=== PATIENT | female | born 1945 | race Caucasian/White ===

== ENCOUNTER 2021-03-13 19:23 | Observation (INO) | payer MEDICARE, SELFPAY ==
[2021-03-13 19:25] VITALS: BP 128/72; PULSE 80; RESP 16; TEMP 36.2; O2SAT 98; BMI 21.2
[2021-03-13 19:38] VITALS: BP 128/72; PULSE 80; RESP 16; TEMP 36.2; O2SAT 98
[2021-03-13 19:50] LABS: Absolute Lymphocyte Count 0.93 X10^3/uL (0.83-4.51); Absolute Neutrophil Count 2.7 X10^3/uL (2.0-7.7); Basophil# 0.01 X10^3/uL; Basophil% 0.3 % (0-1); Eosinophil# 0.01 X10^3/uL; Eosinophils% 0.3 % (0-5); Hematocrit 38.4 % (37-47); Hemoglobin 13.4 g/dL (12.0-15.0); Lymphocyte # 0.93 X10^3/ul (0.83-4.51); Lymphocyte % 23.3 % (19-41); Mean Corp Hgb Conc 34.9 g/dL (32-36); Mean Corpuscular Hgb 31.2 pg (27.0-32.0); Mean Corpuscular Volume 89.5 fL (81-99); Mean Platelet Vol. 9.5 fl (6.2-12.0); Monocyte% 7.5 % (0-10); NRBC Flagged by Analyzer 0 % (0-5); Neutrophil % 67.6 % (47-70); Platelet Count 191 K/mm3 (150-450); RBC Distribution Width SD 39.6 fl (35.1-43.9); Red Blood Count 4.29 M/mm3 (4.2-5.4)
[2021-03-13 20:05] LABS: Anion Gap 10 (5-15); BUN 7 mg/dL (7-18); BUN/Creat Ratio 15.6 RATIO (10-20); Calcium,Total 9.1 mg/dL (8.5-10.1); Chloride 88 mmol/L (98-107); Creatinine, Serum 0.45 mg/dL (0.55-1.02); EST Glomerular Filtration Rate 146 mL/min (>60); Est Glom Filt Rate - Afr Amer 176 mL/min (>60); Estimated Creatinine Clearance 39.63 ml/min; Glucose 121 mg/dL (74-106); Potassium 3.7 mmol/L (3.5-5.1); Sodium Level 122 mmol/L (136-145)
[2021-03-13 21:45] VITALS: BP 117/70; PULSE 74; RESP 17; O2SAT 99
--- NOTE | 2021-03-13 21:59 | EDS_ITS ---
HPI History of Present Illness Chief Complaint: Diarrhea Informant: patient and spouse/S.O. Narrative Narrative: Patient presents here with spouse evaluation symptoms starting a week ago. Reports nontraumatic low back pain nausea weakness with clear productive cough. Subjective fevers. Reports watery loose stool starting today. No recent antibiotics. Decreased urine output. Patient nonvaccinated for Covid. Patient trying to keep up with fluids however gets significantly nauseated. There has been no vomiting. Patient with no past medical history, only surgical history is cataracts. Reports epigastric tenderness. Prior similar symptoms: No PFSH PFSH Medical History no medical history Home Medications NK 03/13/21 [History Last Taken Unknown] Allergy/AdvReac Type Severity Reaction Status Date / Time No Known Allergies Allergy Verified 03/13/21 19:24 Social History Smoking Status: Never smoker ROS ROS ED Constitutional Constitutional ED: Reports fever(s); Denies chills or sweats Eyes Eyes: Denies change in vision ENT ENT ED: Denies dysphagia or sore throat Cardiovascular Cardiovascular: Denies chest pain, leg edema, palpitations or racing heartbeat Respiratory/Chest Respiratory/Chest: Reports cough; Denies dyspnea or dyspnea on exertion Gastrointestinal Gastrointestinal: Reports abdominal pain, diarrhea and nausea; Denies vomiting Genitourinary Genitourinary ED: Denies dysuria, hematuria or urinary frequency Musculoskeletal Musculoskeletal: Denies back pain, extremity pain or neck pain Integumentary Denies rash or wounds Neurologic Neurologic: Denies headache(s), paresthesias or weakness EXAM Physical Exam Const Vital Signs: 03/13/21 19:25 03/13/21 19:38 03/13/21 21:45 Temperature 97.2 F L 97.2 F L Temperature Source Temporal Temporal Pulse Rate 80 80 74 Respiratory Rate 16 16 17 Blood Pressure 128/72 H 128/72 H 117/70 Blood Pressure Mean 90 90 85 Pulse Ox 98 98 99 Oxygen Delivery Method Room Air Room Air Room Air Positive well nourished and well developed General Appearance ED: well developed and NAD HEENT Reports dry mucous membranes normocephalic and atraumatic Mouth ED: Yes dry mucous membranes Mouth: dry mucous membranes Eyes PERRL, EOMs intact bilaterally and conjunctivae normal General Eye ED: Yes normal appearance of both eyes Neck no lymphadenopathy and supple General: Negative for tenderness Chest Wall Chest: Negative for tenderness Resp normal respiratory effort and normal air movement Effort and Inspection: symmetric chest movement; Negative for respiratory distress Cardio regular rate, regular rhythm and no murmurs Peripheral Pulses: pulses 2+ throughout GI normal to inspection, nondistended, normoactive bowel sounds and non-tender GI Narrative: Negative Rey's or McBurney's tenderness. Palpation: Negative for guarding or rebound tenderness present Back/Spine no CVA tenderness and no thoracic nor lumbar tenderness Extremity normal to inspection General Extremety ED: Negative for edema or tenderness General Extremity: Negative for edema Neuro oriented x3 and no sensory deficits noted Sensorium / Orientation: awake and alert Skin no rashes or lesions noted and no wounds MDM MDM MDM Narrative Medical decision making narrative: Patient clinical dehydration with dry mucosal membranes. Patient's work-up was initiated in triage with basic labs. White count of 4 hemoglobin 13.4. Creatinine 0.45. However sodium at 122. With epigastric tenderness I did add lipase and liver enzymes. Lipase is normal. Slight transaminitis with AST at 43, ALT of 59, ALP at 247. She had no right upper quadrant tenderness. Urine noted nitrites and RBCs, per nontraumatic back pain she is in no distress. Urine culture was sent. She denies any burning with urine or any frequency. Reported more decreased urine output. Chest x-ray reported ill-defined right lower lobe density concerning for pneumonia versus ill-defined mass. She has no tobacco history. With her transaminitis with concerning chest x-ray findings, CT scan chest abdomen pelvis with IV contrast obtained. There is no masses. There is multilobe infiltrates noted. Reported per radiology concerns for Covid, she is a week and the symptoms with a negative rapid Covid. Lower suspicion for this. Blood culture added. She started on Rocephin and Zithromax for community-acquired pneumonia coverage. I spoke with hospitalist Dr. Becerra for admission. Patient nausea improved with Zofran. she is stable for the medical floor. Lab Data Attestation: I reviewed the patient's lab results. Labs: Laboratory Results - last 24 hr 03/13/21 03/13/21 03/13/21 19:35 19:35 19:35 WBC 4.0 L RBC 4.29 Hgb 13.4 Hct 38.4 MCV 89.5 MCH 31.2 MCHC 34.9 RDW Std Deviation 39.6 RDW Coeff of Oliver 12.0 Plt Count 191 MPV 9.5 Immature Gran % (Auto) 1.000 H Neut % (Auto) 67.6 Lymph % (Auto) 23.3 [place] % (Auto) 7.5 Eos % (Auto) 0.3 Baso % (Auto) 0.3 Absolute Neuts (auto) 2.7 Absolute Lymphs (auto) 0.93 Nucleated RBC % 0 Sodium 122 L Potassium 3.7 Chloride 88 L Carbon Dioxide 24.0 Anion Gap 10 BUN 7 Creatinine 0.45 L Estim Creat Clear Calc 39.63 Est GFR (MDRD) Af Amer 176 Est GFR (MDRD) Non-Af 146 BUN/Creatinine Ratio 15.6 Glucose 121 H Calcium 9.1 Total Bilirubin 0.40 Direct Bilirubin 0.18 AST 43 H ALT 59 H Alkaline Phosphatase 247 H Troponin I High Sens 7 Total Protein 7.2 Albumin 3.2 Globulin 4.0 Lipase 84 Urine Color Urine Clarity Urine pH Ur Specific [place] Urine Protein Urine Glucose (UA) Urine Ketones Urine Occult Blood Urine Nitrite Urine Bilirubin Urine Urobilinogen Ur Leukocyte Esterase Urine RBC Urine WBC Ur Squamous Epith Cells Urine Bacteria Urine Mucus 03/13/21 22:20 WBC RBC Hgb Hct MCV MCH MCHC RDW Std Deviation RDW Coeff of Oliver Plt Count MPV Immature Gran % (Auto) Neut % (Auto) Lymph % (Auto) [place] % (Auto) Eos % (Auto) Baso % (Auto) Absolute Neuts (auto) Absolute Lymphs (auto) Nucleated RBC % Sodium Potassium Chloride Carbon Dioxide Anion Gap BUN Creatinine Estim Creat Clear Calc Est GFR (MDRD) Af Amer Est GFR (MDRD) Non-Af BUN/Creatinine Ratio Glucose Calcium Total Bilirubin Direct Bilirubin AST ALT Alkaline Phosphatase Troponin I High Sens Total Protein Albumin Globulin Lipase Urine Color Yellow Urine Clarity Sl. Cloudy Urine pH 7.0 Ur Specific [place] 1.015 Urine Protein 15 H Urine Glucose (UA) Normal Urine Ketones Negative Urine Occult Blood 25 H Urine Nitrite Positive H Urine Bilirubin Negative Urine Urobilinogen Normal Ur Leukocyte Esterase Negative Urine RBC 0-5 SEEN Urine WBC 0 SEEN Ur Squamous Epith Cells 0 SEEN Urine Bacteria 2+ Urine Mucus 0 SEEN Radiography Chest X-Ray - ED: 1 View, Read by ED Physician and Read by Radiologist Diagnostic Testing: Clinical Impression(s) from Imaging Studies Chest X-Ray 03/13/21 22:40 IMPRESSION: Ill-defined opacity in the right lung as above. Consider pneumonia versus malignancy. Chest CT may be helpful to further evaluate Electronically Signed: Angel BrandonDO yasir at 23:11 EST Tel , Service support , Chest/Abdomen/Pelvis CT 03/13/21 23:18 IMPRESSION: 1. Negative for pulmonary embolism or thoracic aortic dissection. Patchy groundglass airspace disease throughout the lungs compatible with COVID. 2. Unremarkable abdomen and pelvis for patient''s age Electronically Signed: Angel DO Chapito at 0:30 EST Tel , Service support , EKG Initial EKG: Attestation: I personally reviewed and interpreted this EKG as follows: Comments: Sinus rate of 77, no ST or T wave changes. Discharge Plan Dx/Rx/DC Orders Clinical Impression: Community acquired pneumonia, Acute hyponatremia, Nausea, Acute dehydration, Transaminitis Disposition Disposition: Acute Care [facility]
--- NOTE | 2021-03-13 22:01 | EKG12_ITS ---
Test Reason : NAUSEA Blood Pressure : / mmHG Vent. Rate : 077 BPM Atrial Rate : 077 BPM P-R Int : 156 ms QRS Dur : 086 ms QT Int : 384 ms P-R-T Axes : 063 012 027 degrees QTc Int : 434 ms Normal sinus rhythm Low voltage QRS Septal TX, age undetermined, cannot be excluded Confirmed by RONNY MORALES, JR ([id number]), manuscript editor SANDRA DEJESUS ([id number]) on 03/15/2021 9:20:06 AM Referred By: JONO Confirmed By:JR JEFFERSON MD
[2021-03-13] MEDS: Ondansetron 4 MG/2 ML Vial IV (22:14)
[2021-03-13] MEDS: 0.9% Normal Saline 1,000 ML 1000 ML IV (22:14)
[2021-03-13 22:29] LABS: Mucous, Urine 0 SEEN /hpf (<or=2+); Squamous Epithelial Cells - UA 0 SEEN /hpf (5-10); White Blood Cells 0 SEEN /hpf (0-5)
[2021-03-13 22:31] LABS: AST(SGOT) 43 U/L (15-37); Alanine Aminotransfer ALT/SGPT 59 U/L (13-56); Albumin, Serum 3.2 g/dL (3.2-5.0); Alkaline Phosphatase 247 U/L (45-117); Bilirubin, Direct 0.18 mg/dL (0.00-0.30); Lipase 84 U/L (73-393); Protein, Total 7.2 g/dL (6.4-8.2); Troponin-I HS 7 pg/mL (3.0-54.0)
--- NOTE | 2021-03-13 22:40 | RAD_ITS ---
STUDY: X-RAY CHEST REASON FOR EXAM: Female, 75 years old. cough TECHNIQUE: Single AP portable view of the chest. COMPARISON: None. FINDINGS: Ill-defined opacity in the right mid to lower lung measuring 4.3 x 3.7 cm Lungs are otherwise clear. There is no demonstrated pleural abnormality. Normal size heart. Normal mediastinum and [place]. Normal visualized pulmonary arteries. Normal visualized aortic arch and descending thoracic aorta. Normal visualized thoracic spine. Normal visualized ribs, clavicles, and shoulders. There is no demonstrated abnormality of the visualized soft tissue structures of the upper abdomen. RAD/Chest 1 View (Portable) IMPRESSION: Ill-defined opacity in the right lung as above. Consider pneumonia versus malignancy. Chest CT may be helpful to further evaluate Electronically Signed: Angel Uriarte DO at 23:11 EST Tel , Service support ,
[2021-03-13 22:49] LABS: Color, Urine Yellow (Yellow); Glucose, Dipstick Normal (Normal); Ketone-Dipstick Negative (Negative); Leukocyte Esterase-Dipstick Negative /ul (Negative); Nitrite-Dipstick Positive (Negative); Occult Blood-Urine 25 /ul (Negative); Protein-Dipstick 15 mg/dl (Negative); Specific Gravity, Urine 1.015 (1.002-1.030); Urine Bilirubin Dipstick Negative (Negative); Urine Clarity Sl. Cloudy (Clear); Urine Urobilinogen Normal (Normal)
[2021-03-13 23:00] LABS: Bacteria 2+ /hpf (None Seen); Red Blood Cells-Urine 0-5 SEEN /hpf (0-5)
--- NOTE | 2021-03-13 23:18 | CT_ITS ---
STUDY: CT CHEST, ABDOMEN T PELVIS WITH CONTRAST REASON FOR EXAM: Female, 75 years old. right lung mass -- tranasminitis, hyponatremia, r/o masses RADIATION DOSAGE (If Supplied By Facility): CTDIvol = ( 10.19 ) mGy, DLP = ( 783.22 ) mGycm TECHNIQUE: Transaxial imaging was performed following intravenous administration of IV 100mL Isovue-370. Individualized dose optimization techniques were used for this CT. COMPARISON: Chest x-ray earlier. FINDINGS: CHEST nonenhancing right thyroid nodule measuring 7 mm. Lungs are adequately inflated with diffuse patchy groundglass airspace disease, most prominent in the right lung giving findings seen on chest x-ray. Findings are compatible with COVID pneumonia. There is no demonstrated pleural abnormality. Normal heart and pericardium. Normal mediastinum. Normal hilar regions. Normal unenhanced pulmonary arteries. Normal aorta arch and descending thoracic aorta. Normal osseous structures. There is no demonstrated abnormality of the visualized upper abdomen. ABDOMEN The visualized lung bases are unremarkable. The visualized portions of the heart are within normal limits. Normal liver. Normal gallbladder and extrahepatic biliary system. Normal spleen. Normal pancreas. Normal bilateral adrenal glands. Normal right kidney. Normal left kidney. Normal visualized stomach. Normal small intestine. There are multiple colonic diverticula consistent with diverticulosis. The appendix is visualized and appears normal. Normal abdominal aorta. Normal inferior vena cava. Normal retroperitoneum. Normal abdominal wall. Normal osseous structures. PELVIS Normal urinary bladder. Moderate uterine atrophy. Normal visualized small intestine. Normal visualized colon. There is no pelvic fluid. There is no pelvic lymphadenopathy or mass lesion. Normal visualized pelvic arteries. Normal abdominal wall. There are diffuse degenerative changes of the visualized lumbar spine. CT/CT Chest, Abd, Pel w/Contrast IMPRESSION: 1. Negative for pulmonary embolism or thoracic aortic dissection. Patchy groundglass airspace disease throughout the lungs compatible with COVID. 2. Unremarkable abdomen and pelvis for patient''s age Electronically Signed: Angel Uriarte DO at 0:30 EST Tel , Service support ,
[2021-03-14] VITALS (15 sets, daily range): BP systolic 86–126; BP diastolic 59–83; PULSE 68–102; RESP 16–20; TEMP 36.6–37.7; O2SAT 94–99; BMI 21.9
--- NOTE | 2021-03-14 00:50 | HP.PCM_ITS ---
HPI - General HPI Narrative SHREE MORRIS, is a 75 F who presents to the emergency room with chief complaint of general illness. The patient complained of increased cough shortness of breath and fever beginning 2 weeks ago. The patient is not vaccinated for COVID-19 virus but has been tested periodically throughout this past 2 weeks and was negative today in the emergency room. The patient has had increased fatigue and decreased appetite for the past several days and came to the emergency room for further evaluation. Chest x-ray reveals a right lower lobe consolidation and a subsequent CT scan was done to rule out a mass which was negative. The patient sodium level was 122. She continued to have rigors during my evaluation. I was the consensus of myself and the emergency room physician that we were treating a bacterial pneumonia and Rocephin and azithromycin were initiated. She will be admitted for further management of her community-acquired pneumonia. COUNTS INCLUDE 234 BEDS AT THE [facility] Medical History no medical history Home Medications NK 03/13/21 [History Last Taken Unknown] Allergy/AdvReac Type Severity Reaction Status Date / Time No Known Allergies Allergy Verified 03/13/21 19:24 Social History Smoking Status: Never smoker ROS Constitutional Constitutional: Reports chills, fatigue, fever(s), malaise and weakness Eyes Eyes: Denies blurry vision ENT HEENT: Denies abnormal hearing Cardiovascular Cardiovascular: Denies chest pain Respiratory/Chest Respiratory/Chest: Reports cough and shortness of breath with exertion Gastrointestinal Gastrointestinal: Denies abdominal pain Genitourinary Genitourinary: Denies dysuria Musculoskeletal Musculoskeletal: Denies back pain Integumentary Integumentary: Denies dry skin Neurologic Neurologic: Denies abnormal gait Psychiatric Psychiatric: Denies anxiety Vital Signs Vital Signs Vital Signs: 03/13/21 19:25 03/13/21 19:38 03/13/21 21:45 Temperature 97.2 F L 97.2 F L Temperature Source Temporal Temporal Pulse Rate 80 80 74 Respiratory Rate 16 16 17 Blood Pressure 128/72 H 128/72 H 117/70 Blood Pressure Mean 90 90 85 Pulse Ox 98 98 99 Oxygen Delivery Method Room Air Room Air Room Air Weight Weight: 116 lb Body Mass Index (BMI) 21.2 Physical Exam Const oriented x3 General Appearance: cooperative HEENT head/scalp atraumatic Eyes PERRL Neck no lymphadenopathy and supple Resp normal respiratory effort and clear to auscultation bilaterally Cardio regular rate, regular rhythm, S1 normal heart sound and S2 normal heart sound GI normal to inspection, nondistended, normoactive bowel sounds Extremity normal capillary refill Neuro CN's II-XII intact bilaterally Results Lab / Micro Data Result Diagrams: 03/13/21 19:35 03/13/21 19:35 Labs: Laboratory Results - last 24 hr 03/13/21 19:35: WBC 4.0 L, RBC 4.29, Hgb 13.4, Hct 38.4, MCV 89.5, MCH 31.2, MCHC 34.9, RDW Std Deviation 39.6, RDW Coeff of Oliver 12.0, Plt Count 191, MPV 9.5, Immature Gran % (Auto) 1.000 H, Neut % (Auto) 67.6, Lymph % (Auto) 23.3, [place] % (Auto) 7.5, Eos % (Auto) 0.3, Baso % (Auto) 0.3, Absolute Neuts (auto) 2.7, Absolute Lymphs (auto) 0.93, Nucleated RBC % 0 03/13/21 19:35: Sodium 122 L, Potassium 3.7, Chloride 88 L, Carbon Dioxide 24.0, Anion Gap 10, BUN 7, Creatinine 0.45 L, Estim Creat Clear Calc 39.63, Est GFR (MDRD) Af Amer 176, Est GFR (MDRD) Non-Af 146, BUN/Creatinine Ratio 15.6, Glucose 121 H, Calcium 9.1 03/13/21 19:35: Total Bilirubin 0.40, Direct Bilirubin 0.18, AST 43 H, ALT 59 H, Alkaline Phosphatase 247 H, Troponin I High Sens 7, Total Protein 7.2, Albumin 3.2, Globulin 4.0, Lipase 84 03/13/21 22:20: Urine Color Yellow, Urine Clarity Sl. Cloudy, Urine pH 7.0, Ur Specific [place] 1.015, Urine Protein 15 H, Urine Glucose (UA) Normal, Urine Ketones Negative, Urine Occult Blood 25 H, Urine Nitrite Positive H, Urine Bilirubin Negative, Urine Urobilinogen Normal, Ur Leukocyte Esterase Negative, Urine RBC 0-5 SEEN, Urine WBC 0 SEEN, Ur Squamous Epith Cells 0 SEEN, Urine Bacteria 2+, Urine Mucus 0 SEEN Micro: Microbiology 03/13/21 19:31 Nasal Secretion SARS-CoV-2 Antigen (Rapid) - Final Radiology Impression Chest X-Ray 03/13/21 22:40 IMPRESSION: Ill-defined opacity in the right lung as above. Consider pneumonia versus malignancy. Chest CT may be helpful to further evaluate Electronically Signed: Angel UriarteDO at 23:11 EST Tel , Service support , Chest/Abdomen/Pelvis CT 03/13/21 23:18 IMPRESSION: 1. Negative for pulmonary embolism or thoracic aortic dissection. Patchy groundglass airspace disease throughout the lungs compatible with COVID. 2. Unremarkable abdomen and pelvis for patient''s age Electronically Signed: Angel DO Chapito at 0:30 EST Tel , Service support , Assessment & Plan Assessment/Plan (1) Community acquired pneumonia: (2) Acute hyponatremia: (3) Transaminitis: PLAN: 1. Community-acquired pneumonia?admit patient to medical surgical floor, continue Rocephin and azithromycin initiated in the emergency room, DuoNe b INH every 4 hours as needed shortness of breath, Solu-Medrol 40 mg IV every 8 hours 2. Hyponatremia?IV normal saline at a rate of 100 cc/h, repeat CMP in the morning 3. Transaminitis?repeat CMP in the morning 4. DVT prophylaxis?low molecular weight heparin Charges/Coding Visit Charges Inpatient E&M: 61723 Init Hosp L3
[2021-03-14] MEDS: Ceftriaxone 1 GM/50 ML BAG IV ×2 (01:02→23:31)
[2021-03-14] MEDS: 0.9% Normal Saline 1,000 ML 100 ML IV (03:47)
--- NOTE | 2021-03-14 05:00 | NURSING ---
Aiken a loud noise. found pt sitting on the floor. Pt reports falling out of bed. pt denies hitting her head. pt denies pain. heavy equipment supervisor & dr Becerra notified.
[2021-03-14 05:16] LABS: Bedside Glucose 107 mg/dL (70-110)
[2021-03-14] MEDS: 0.9% Saline Lock 10 ML Syringe IV ×3 (06:20→22:58)
[2021-03-14] MEDS: Ondansetron 4 MG/2 ML Vial IV (06:22)
--- NOTE | 2021-03-14 06:28 | NURSING ---
attempted to call to update on nights events. no answer.
[2021-03-14] MEDS: Ipratropium/Albuterol Sulfate 3 ML AMPUL.NEB INHALATION ×4 (06:49→19:56)
--- NOTE | 2021-03-14 06:49 | NURSING ---
attempted to call . voicemail
[2021-03-14 08:14] LABS: Absolute Lymphocyte Count 0.83 X10^3/uL (0.83-4.51); Absolute Neutrophil Count 2.7 X10^3/uL (2.0-7.7); Basophil# 0.01 X10^3/uL; Basophil% 0.3 % (0-1); Hematocrit 38.4 % (37-47); Hemoglobin 13.3 g/dL (12.0-15.0); Lymphocyte # 0.83 X10^3/ul (0.83-4.51); Lymphocyte % 21.5 % (19-41); Mean Corp Hgb Conc 34.6 g/dL (32-36); Mean Corpuscular Hgb 31.8 pg (27.0-32.0); Mean Corpuscular Volume 91.9 fL (81-99); Mean Platelet Vol. 9.5 fl (6.2-12.0); Monocyte# 0.23 X10^3/uL; NRBC Flagged by Analyzer 0 % (0-5); Neutrophil # 2.74 X10^3/uL (2.7-7.7); Neutrophil % 70.9 % (47-70); Platelet Count 187 K/mm3 (150-450); RBC Distribution Width CV 12.1 % (11.6-14.6); RBC Distribution Width SD 41.1 fl (35.1-43.9); Red Blood Count 4.18 M/mm3 (4.2-5.4); White Blood Count 3.9 K/mm3 (4.4-11.0)
[2021-03-14 08:47] LABS: ALB/GLOB Ratio 0.8 RATIO (0.9-2.4); AST(SGOT) 47 U/L (15-37); Alanine Aminotransfer ALT/SGPT 53 U/L (13-56); Alkaline Phosphatase 216 U/L (45-117); Anion Gap 5 (5-15); BUN 5 mg/dL (7-18); BUN/Creat Ratio 8.6 RATIO (10-20); Calcium,Total 8.6 mg/dL (8.5-10.1); Chloride 99 mmol/L (98-107); Creatinine, Serum 0.58 mg/dL (0.55-1.02); EST Glomerular Filtration Rate 108 mL/min (>60); Est Glom Filt Rate - Afr Amer 131 mL/min (>60); Estimated Creatinine Clearance 37.81 ml/min; Globulin 3.6 g/dL (2.2-4.2); Glucose 113 mg/dL (74-106); Potassium 3.6 mmol/L (3.5-5.1); Protein, Total 6.6 g/dL (6.4-8.2); Sodium Level 132 mmol/L (136-145)
--- NOTE | 2021-03-14 10:25 | CASEMGMT ---
RN CM called patient in room for initial transition planning/care coordination assessment. RN CM introduced self and role at [facility]. Patient is alert and oriented. Patient willing to participate in assessment and is able to answer all questions appropriately. Care providers, pharmacy, and demographics verified. Patient wishes to discharge home, denies need for home health at this time. Patient states she has no further needs or concerns at this time. CM to follow for discharge planning needs that may arise. PCP: Kia Specialists: none Preferred Pharmacy: [facility] Insurance: [facility] Prescription Benefit: yes Living Will/HPOA: yes, Jhoan Lawrence LNOK: Living Arrangements: Patient lives with in a 2 story home. Patient states she is independent and able to ambulate stairs. Transportation: self/ DME/HHC: Patient states she has shower chair, raised toilet, grab bars at home. Patient denies previous HHC or SNF. Patient states no preferences for DME. Disposition Plan: Patient to discharge home with family support and follow-up plans in place. Will monitor for home oxygen. Tori LEE, RN, CM
--- NOTE | 2021-03-14 11:18 | PCM.PN.HOSP ---
Subjective Subjective Follow-up on Acute COVID-19 pneumonia: Patient was seen and examined. She is not on oxygen. She feels improved. COVID-19 PCR is positive. Objective Data Objective Data Vital Signs: Vital Signs Temp Pulse Resp BP Pulse Ox 99.7 F H 82 16 107/62 94 03/14/21 08:16 03/14/21 08:16 03/14/21 10:51 03/14/21 08:16 03/14/21 08:16 Oxygen Delivery Method Room Air Weight: 52.8 kg Body Mass Index (BMI) 21.9 Intake & Output: Intake and Output for Last 24 Hours 03/12/21 03/13/21 03/14/21 23:59 23:59 23:59 Intake Total 1000 / 1000 505 / 505 Output Total 600 / 600 Balance 1000 / 1000 -95 / -95 Lab / Micro Data Result Diagrams: 03/14/21 07:45 03/14/21 07:45 Labs: Laboratory Results - last 24 hr 03/13/21 19:35: WBC 4.0 L, RBC 4.29, Hgb 13.4, Hct 38.4, MCV 89.5, MCH 31.2, MCHC 34.9, RDW Std Deviation 39.6, RDW Coeff of [place] 12.0, Plt Count 191, MPV 9.5, Immature Gran % (Auto) 1.000 H, Neut % (Auto) 67.6, Lymph % (Auto) 23.3, [place] % (Auto) 7.5, Eos % (Auto) 0.3, Baso % (Auto) 0.3, Absolute Neuts (auto) 2.7, Absolute Lymphs (auto) 0.93, Nucleated RBC % 0 03/13/21 19:35: Sodium 122 L, Potassium 3.7, Chloride 88 L, Carbon Dioxide 24.0, Anion Gap 10, BUN 7, Creatinine 0.45 L, Estim Creat Clear Calc 39.63, Est GFR (MDRD) Af Amer 176, Est GFR (MDRD) Non-Af 146, BUN/Creatinine Ratio 15.6, Glucose 121 H, Calcium 9.1 03/13/21 19:35: Total Bilirubin 0.40, Direct Bilirubin 0.18, AST 43 H, ALT 59 H, Alkaline Phosphatase 247 H, Troponin I High Sens 7, Total Protein 7.2, Albumin 3.2, Globulin 4.0, Lipase 84 03/13/21 22:20: Urine Color Yellow, Urine Clarity Sl. Cloudy, Urine pH 7.0, Ur Specific [place] 1.015, Urine Protein 15 H, Urine Glucose (UA) Normal, Urine Ketones Negative, Urine Occult Blood 25 H, Urine Nitrite Positive H, Urine Bilirubin Negative, Urine Urobilinogen Normal, Ur Leukocyte Esterase Negative, Urine RBC 0-5 SEEN, Urine WBC 0 SEEN, Ur Squamous Epith Cells 0 SEEN, Urine Bacteria 2+, Urine Mucus 0 SEEN 03/14/21 05:11: POC Glucose 107 03/14/21 07:45: WBC 3.9 L, RBC 4.18 L, Hgb 13.3, Hct 38.4, MCV 91.9, MCH 31.8, MCHC 34.6, RDW Std Deviation 41.1, RDW Coeff of [place] 12.1, Plt Count 187, MPV 9.5, Immature Gran % (Auto) 1.300 H, Neut % (Auto) 70.9 H, Lymph % (Auto) 21.5, [place] % (Auto) 6.0, Eos % (Auto) 0.0, Baso % (Auto) 0.3, Absolute Neuts (auto) 2.7, Absolute Lymphs (auto) 0.83, Nucleated RBC % 0 03/14/21 07:45: Sodium 132 L, Potassium 3.6, Chloride 99, Carbon Dioxide 28.0, Anion Gap 5, BUN 5 L, Creatinine 0.58, Estim Creat Clear Calc 37.81, Est GFR (MDRD) Af Amer 131, Est GFR (MDRD) Non-Af 108, BUN/Creatinine Ratio 8.6 L, Glucose 113 H, Calcium 8.6, Total Bilirubin 0.40, AST 47 H, ALT 53, Alkaline Phosphatase 216 H, Total Protein 6.6, Albumin 3.0 L, Globulin 3.6, Albumin/Globulin Ratio 0.8 L 03/14/21 07:55: COVID-19 (FADIA) Detected Micro: Microbiology 03/14/21 07:55 Mucosa - Nasopharyngeal Respiratory Panel (PCR) - Final 03/13/21 19:31 Nasal Secretion SARS-CoV-2 Antigen (Rapid) - Final Radiography Diagnostic Testing: Radiology Impression Chest X-Ray 03/13/21 22:40 IMPRESSION: Ill-defined opacity in the right lung as above. Consider pneumonia versus malignancy. Chest CT may be helpful to further evaluate Electronically Signed: Angel Uriarte DO at 23:11 EST Tel , Service support , Chest/Abdomen/Pelvis CT 03/13/21 23:18 IMPRESSION: 1. Negative for pulmonary embolism or thoracic aortic dissection. Patchy groundglass airspace disease throughout the lungs compatible with COVID. 2. Unremarkable abdomen and pelvis for patient''s age Electronically Signed: Angel Uriarte DO at 0:30 EST Tel , Service support , Physical Exam Narrative Physical exam: General: Alert, Oriented x3, Cooperative, No apparent distress, Well developed HEENT: Atraumatic Oral: Moist Mucosa Neck: Supple Lungs: Diminished to auscultation Cardiovascular: HS I+II, regular, no murmurs Abdomen: Bowel Sounds Present, Soft, Non Tender Extremities: No edema Assessment & Plan Assessment/Plan (1) Pneumonia due to COVID-19 virus: (2) Hyponatremia: PLAN: 1. Acute COVID-19 pneumonia without hypoxia Patient is unvaccinated Symptoms started 7 days ago Remains not on oxygen Will hold off on ordering Decadron and remdesivir Continue to encourage use of incentive spirometer 2. Hyponatremia, probably related to the dehydration/hypovolemia Sodium is now 132, administered on 122; likely overcorrected Will stop IV fluids, repeat blood work in a.m. Charges/Coding Visit Charges Inpatient E&M: 04122 Subs Hosp L2
[2021-03-15] VITALS (10 sets, daily range): BP systolic 106–114; BP diastolic 58–76; PULSE 55–87; RESP 12–20; TEMP 36.4–36.8; O2SAT 92–99
[2021-03-15] MEDS: 0.9% Saline Lock 10 ML Syringe IV (05:12)
[2021-03-15 07:36] LABS: Absolute Lymphocyte Count 0.83 X10^3/uL (0.83-4.51); Absolute Neutrophil Count 2.7 X10^3/uL (2.0-7.7); Basophil# 0.01 X10^3/uL; Basophil% 0.3 % (0-1); Hemoglobin 12.9 g/dL (12.0-15.0); Lymphocyte # 0.83 X10^3/ul (0.83-4.51); Lymphocyte % 21.6 % (19-41); Mean Corp Hgb Conc 33.9 g/dL (32-36); Mean Corpuscular Hgb 31.5 pg (27.0-32.0); Mean Corpuscular Volume 92.9 fL (81-99); Mean Platelet Vol. 9.6 fl (6.2-12.0); Monocyte# 0.28 X10^3/uL; Monocyte% 7.3 % (0-10); NRBC Flagged by Analyzer 0 % (0-5); Neutrophil # 2.68 X10^3/uL (2.7-7.7); Neutrophil % 69.8 % (47-70); Platelet Count 203 K/mm3 (150-450); RBC Distribution Width CV 12.3 % (11.6-14.6); Red Blood Count 4.09 M/mm3 (4.2-5.4); White Blood Count 3.8 K/mm3 (4.4-11.0)
[2021-03-15] MEDS: Ipratropium/Albuterol Sulfate 3 ML AMPUL.NEB INHALATION ×2 (07:37→11:08)
[2021-03-15 07:52] LABS: ALB/GLOB Ratio 0.8 RATIO (0.9-2.4); AST(SGOT) 62 U/L (15-37); Alanine Aminotransfer ALT/SGPT 71 U/L (13-56); Alkaline Phosphatase 246 U/L (45-117); Anion Gap 8 (5-15); BUN 7 mg/dL (7-18); BUN/Creat Ratio 12.4 RATIO (10-20); Calcium,Total 8.7 mg/dL (8.5-10.1); Chloride 101 mmol/L (98-107); Creatinine, Serum 0.56 mg/dL (0.55-1.02); EST Glomerular Filtration Rate 112 mL/min (>60); Est Glom Filt Rate - Afr Amer 135 mL/min (>60); Estimated Creatinine Clearance 37.81 ml/min; Glucose 143 mg/dL (74-106); Potassium 3.9 mmol/L (3.5-5.1); Sodium Level 135 mmol/L (136-145)
--- NOTE | 2021-03-15 09:30 | PCS.PANDOC ---
PANDEMIC DOCUMENTATION INITIATED: Date: 12/19/2020 Time: 190
--- NOTE | 2021-03-15 11:14 | PCM.DC ---
Discharge Instructions Diet Discharge Diet: No restrictions Activity Discharge Activity: Return to Normal Activity Follow Up Care Test Results: Test results from this visit will be discussed in further detail at your follow-up appointment, if applicable. Discharge Plan Admission Admit Date/Time: 03/14/21 00:56 Primary Reason for Your Visit: Acute COVID-19 pneumonia Attending Provider: Zeenat Lozano Primary Care Provider: León Adam Instructions Additional Instructions / Restrictions: Complete your Decadron. Continue to quarantine for a total of 20 days from the start of symptoms. You are strongly advised to get vaccinated within the next couple of weeks. Discharge Orders/Prescriptions Prescriptions: New dexamethasone 4 mg Tablet 6 mg PO DAILY 9 Days Qty: 14 RF: 0 albuterol sulfate 90 mcg/actuation HFA aerosol inhaler 1 inh inhalation Q4H PRN (Reason: shortness of breath or wheezing) 14 Days Qty: 8.5 RF: 0 Referrals / Follow Up: León Adam MD [Primary Care Provider] - Within 2 Weeks Disposition Disposition (needs filled in before D/C Order can be placed): Home, Self Care
--- NOTE | 2021-03-15 11:21 | DS.PCM_ITS ---
Providers Date of Admission: 03/14/21 Date of Discharge: 03/15/21 Primary Care Physician: Dr. León Adam MD Reason For Visit: COMMUNITY ACQUIRED PNEUMONIA Diagnosis Discharge Diagnosis (1) Pneumonia due to COVID-19 virus: Status: Acute Code(s): U07.1 - COVID-19; J12.82 - Pneumonia due to coronavirus disease 2019 (2) Hyponatremia: Status: Acute Code(s): E87.1 - Hypo-osmolality and hyponatremia Medications at Discharge Home Medications albuterol sulfate 1 inh INHALATION Q4H PRN 14 Days #8.5 g 03/15/21 dexamethasone 6 mg PO DAILY 9 Days #14 tab 03/15/21 Hospital Course Operations None Procedures None Summary of Care Provided Minutes Spent on Discharge: 45 Hospital Course: 75-year-old female who comes in with fever cough shortness of breath ongoing for 2 weeks. Patient is unvaccinated. She was seen in the emergency room her rapid COVID-19 test was negative. A chest x-ray shows right lower lobe consolidation. CTA of the chest was negative for acute PE. Her admitting sodium was 122. Patient was initially admitted as acute bacterial pneumonia and started on IV Rocephin and azithromycin. COVID-19 PCR turned out to be positive. She was put on Covid precautions. She did not require oxygen throughout her hospital stay. She however dropped oxygen saturation to 93% on exertion. She still did not require oxygen. She was disch arged on 10 days of Decadron which she started in the hospital. She will follow up with the primary care doctor 1 to 2 weeks after her quarantine is over. Physical Exam Narrative Physical exam: General: Alert, Oriented x3, Cooperative, No apparent distress, Well developed HEENT: Atraumatic Oral: Moist Mucosa Neck: Supple Lungs: Diminished to auscultation Cardiovascular: HS I+II, regular, no murmurs Abdomen: Bowel Sounds Present, Soft, Non Tender Extremities: No edema Weight / BMI Weight Weight: 52.8 kg Body Mass Index (BMI) 21.9 ABG / Lab / Microbiology Data Result Diagrams: 03/15/21 07:20 03/15/21 07:20 Laboratory: Laboratory Results - last 24 hr 03/15/21 07:20: WBC 3.8 L, RBC 4.09 L, Hgb 12.9, Hct 38.0, MCV 92.9, MCH 31.5, MCHC 33.9, RDW Std Deviation 42.0, RDW Coeff of Oliver 12.3, Plt Count 203, MPV 9.6, Immature Gran % (Auto) 1.000 H, Neut % (Auto) 69.8, Lymph % (Auto) 21.6, [place] % (Auto) 7.3, Eos % (Auto) 0.0, Baso % (Auto) 0.3, Absolute Neuts (auto) 2.7, Absolute Lymphs (auto) 0.83, Nucleated RBC % 0 03/15/21 07:20: Sodium 135 L, Potassium 3.9, Chloride 101, Carbon Dioxide 26.0, Anion Gap 8, BUN 7, Creatinine 0.56, Estim Creat Clear Calc 37.81, Est GFR (MDRD) Af Amer 135, Est GFR (MDRD) Non-Af 112, BUN/Creatinine Ratio 12.4, Glucose 143 H, Calcium 8.7, Total Bilirubin 0.40, AST 62 H, ALT 71 H, Alkaline Phosphatase 246 H, Total Protein 7.0, Albumin 3.0 L, Globulin 4.0, Albumin/Globulin Ratio 0.8 L Microbiology: Microbiology 03/14/21 00:25 Urine, Clean Catch Urine Culture - Preliminary Culture exhibits no growth. 03/14/21 07:55 Mucosa - Nasopharyngeal Respiratory Panel (PCR) - Final 03/13/21 19:31 Nasal Secretion SARS-CoV-2 Antigen (Rapid) - Final D/C Instructions Discharge Diet: No restrictions Meaningful Use Info Meaningful Use Diagnoses (Choose all that apply): None applicable Discharge Plan Admission Admit Date/Time: 03/14/21 00:56 Primary Reason for Your Visit: Acute COVID-19 pneumonia Attending Provider: Zeenat Lozano Primary Care Provider: León Adam Instructions Additional Instructions / Restrictions: Complete your Decadron. Continue to quarantine for a total of 20 days from the start of symptoms. You are strongly advised to get vaccinated within the next couple of weeks. Discharge Orders/Prescriptions Prescriptions: New dexamethasone 4 mg Tablet 6 mg PO DAILY 9 Days Qty: 14 RF: 0 albuterol sulfate 90 mcg/actuation HFA aerosol inhaler 1 inh inhalation Q4H PRN (Reason: shortness of breath or wheezing) 14 Days Qty: 8.5 RF: 0 Referrals / Follow Up: León Adam MD [Primary Care Provider] - Within 2 Weeks Disposition Disposition (needs filled in before D/C Order can be placed): Home, Self Care Charges/Coding Visit Charges Inpatient E&M: 89078 Disch Hosp
--- NOTE | 2021-03-15 11:48 | CASEMGMT ---
Pt did not qualify for home O2.
--- NOTE | 2021-03-15 12:24 | PHA.DC.MC ---
Pharmacy Service has performed discharge medication reconciliation and counseling for this patient. Patient counseled via telephone due to COVID precautions. 1. ALBUTEROL MDI 1PUFF Q4H PRN SOB/WHEEZING 2. DEXAMETHASONE 6MG PO DAILY X 9 DAYS The patient's discharge medication list was reviewed for discrepancies and discrepancies were resolved. Home Medications albuterol sulfate 1 inh INHALATION Q4H PRN 14 Days #8.5 g 03/15/21 dexamethasone 6 mg PO DAILY 9 Days #14 tab 03/15/21 The patient was counseled on the following discharge medications and changes in medications for homegoing were reviewed. The Reason for Use, instructions for use, and potential side effects were reviewed for all new medications. The patient's questions regarding all of their medications were answered. The patient was able to verbally demonstrate an understanding of their discharge medications.
[2021-03-15] MEDS: dexAMETHasone 4 MG Tablet 6 MG PO (12:47)
--- NOTE | 2021-03-16 15:21 | CASEMGMT ---
WARREN CM Discharge Follow-Up Phone Call. Lace: 4 Strata: 1 Discharge Date: 03/15/21 Adm Dx:CAP, COVID Attempted discharge f/u phone call. No answer. Non-identifying VM received. Non-descript VM left requesting return call if there are any questions or concerns. Phone number provided. Polo LEE RN CM
== END 2021-03-15 15:06 | disposition home or self-care (01) | DRG 177 ==
LOC: ED 03-14 01:05 → MS2 03-14 07:07 → MS3 03-15 10:41 → MS2 09-12 17:08 → MS3 09-12 17:08
PROVIDERS: Admitting Provider Family Medicine; Emergency Provider Emergency Medicine; PCP Family Medicine; Visit Provider Internal Medicine
DX: U07.1 COVID-19 (principal); J12.82 Pneumonia due to coronavirus disease 2019; E87.1 Hypo-osmolality and hyponatremia; E86.0 Dehydration; E86.1 Hypovolemia; R74.01 Elevation of levels of liver transaminase levels
CPT/HCPCS: 36415; 71045; 71260; 74177; 80048; 80053; 80076; 81001; 82962; 83690; 84484; 85025; 87040; 87086; 87426; 87633; 87635; 93005; 94640; 96361; 96365; 96366; 96367; 96375; 96376; 97802; 99218; 99284; J7030; J7040; Q9967; U0005; A4216; G0378; J2405; U0003

== ENCOUNTER 2021-03-20 15:08 | Emergency (ER) | payer MEDICARE, SELFPAY ==
[2021-03-20 15:09] VITALS: BP 140/85; PULSE 79; RESP 16; TEMP 36.6; O2SAT 99; BMI 27.5
[2021-03-20] MEDS: Ondansetron 4 MG/2 ML Vial IV (16:00)
[2021-03-20] MEDS: Morphine 4 MG/ML Syringe IV (16:00)
[2021-03-20] MEDS: 0.9% Normal Saline 1,000 ML 999 ML IV (16:00)
[2021-03-20 16:16] LABS: Absolute Neutrophil Count 4.7 X10^3/uL (2.0-7.7); Basophil# 0.03 X10^3/uL; Basophil% 0.5 % (0-1); Eosinophil# 0.06 X10^3/uL; Eosinophils% 0.9 % (0-5); Hematocrit 38.7 % (37-47); Hemoglobin 13.7 g/dL (12.0-15.0); Lymphocyte % 15.1 % (19-41); Mean Corp Hgb Conc 35.4 g/dL (32-36); Mean Corpuscular Hgb 31.9 pg (27.0-32.0); Monocyte# 0.55 X10^3/uL; Monocyte% 8.3 % (0-10); NRBC Flagged by Analyzer 0 % (0-5); Neutrophil # 4.65 X10^3/uL (2.7-7.7); Neutrophil % 70.2 % (47-70); Platelet Count 339 K/mm3 (150-450); RBC Distribution Width SD 39.6 fl (35.1-43.9); White Blood Count 6.6 K/mm3 (4.4-11.0)
[2021-03-20 16:34] LABS: Anion Gap 11 (5-15); BUN 8 mg/dL (7-18); CPK Total, Creatine Kinase 66 U/L (26-192); Calcium,Total 8.6 mg/dL (8.5-10.1); Chloride 88 mmol/L (98-107); Creatinine, Serum 0.53 mg/dL (0.55-1.02); EST Glomerular Filtration Rate 120 mL/min (>60); Est Glom Filt Rate - Afr Amer 145 mL/min (>60); Estimated Creatinine Clearance 39.63 ml/min; Glucose 103 mg/dL (74-106); Magnesium 2.1 mg/dL (1.6-2.6); Potassium 3.6 mmol/L (3.5-5.1); Sodium Level 124 mmol/L (136-145)
[2021-03-20 17:07] VITALS: BP 132/77; PULSE 78; RESP 16; O2SAT 98
--- NOTE | 2021-03-20 17:21 | EDS_ITS ---
HPI History of Present Illness Chief Complaint: Other, Pain/Inj Narrative Narrative: Patient is a 75-year-old female who was recently admitted to the hospital secondary to COVID-19 as well as hyponatremia. She states she was discharged a few days ago and now has been having increasing pain to her entire body. She denies any recent trauma fevers or chills. She states that she has not been having excessive bouts of vomiting or diarrhea either. She reports has been trying [id number] medications with minimal symptom improvement and therefore comes in for evaluation. PFSH PFSH Medical History Cataract (lens) fragments in eye following cataract surgery, bilateral Former smoker Home Medications albuterol sulfate 1 inh INHALATION Q4H PRN 14 Days #8.5 g 03/15/21 [Rx Last Taken 03/20/21] dexamethasone 2 mg PO DAILY 03/20/21 [History Last Taken 03/20/21] methocarbamol 500 mg PO Q6H PRN #40 tab 03/20/21 [Rx Last Taken Unknown] oxycodone-acetaminophen [Endocet] 1 tab PO Q6H PRN 3 Days #12 tab 03/20/21 [Rx Last Taken Unknown] Allergy/AdvReac Type Severity Reaction Status Date / Time No Known Allergies Allergy Verified 03/20/21 15:12 Social History Smoking Status: Former smoker ROS ROS ED Constitutional Constitutional ED: Denies chills or fever(s) ENT ENT ED: Denies sore throat Cardiovascular Cardiovascular: Denies chest pain Respiratory/Chest Respiratory/Chest: Denies cough or dyspnea Gastrointestinal Gastrointestinal: Denies abdominal pain, diarrhea, nausea or vomiting Genitourinary Genitourinary ED: Denies dysuria Musculoskeletal Musculoskeletal: Reports back pain and myalgias Integumentary Denies rash Neurologic Neurologic: Denies headache(s), paresthesias or weakness EXAM Physical Exam Const Vital Signs: 03/20/21 15:09 03/20/21 16:03 03/20/21 17:07 Temperature 97.8 F Temperature Source Temporal Pulse Rate 79 78 Respiratory Rate 16 16 Respiratory Effort Normal Non-Labored Respiratory Pattern Normal Blood Pressure 140/85 H 132/77 H Blood Pressure Mean 103 95 Pulse Ox 99 98 Oxygen Delivery Method Room Air Positive well nourished and well developed General Appearance ED: well developed HEENT Reports dry mucous membranes Mouth ED: Yes dry mucous membranes Mouth: dry mucous membranes Eyes PERRL and EOMs intact bilaterally Neck supple Neck Narrative: No meningeal signs Chest Wall palpation of chest normal Resp normal respiratory effort and clear to auscultation bilaterally Cardio regular rate and regular rhythm Rate: other Other Details: Radial pulses are +2-4 bilaterally they are equal and symmetric GI normal to inspection, nondistended, normoactive bowel sounds, non-tender, non- distended and no masses GI Narrative: No voluntary guarding or rigidity no pulsatile mass Auscultation: normoactive bowel sounds Palpation: soft Extremity normal to inspection Extremity Narrative: No asymmetric edema no pitting edema negative Homans' sign bilaterally Neuro oriented x3 and CN's II-XII intact bilaterally Sensorium / Orientation: alert Motor Exam: strength 5/5 throughout Psych mental status grossly normal Skin no rashes or lesions noted Skin Narrative: No overlying soft tissue changes to suggest trauma or infection MDM MDM MDM Narrative Medical decision making narrative: Patient presented to the ER afebrile and in no acute respiratory distress. She reported diffuse pain and with her recent Covid diagnosis this would make most sense that she is a long-haul her with persistent myalgias. However she could be in rhabdomyolysis also so I like to perform basic labs with CPK. CPK level is normal and laboratory studies showed no clinically significant findings other than repeat hyponatremia. Secondary to the repeat hyponatremia I did discuss the case with medicine on-call. They do not feel there is need for readmission to the hospital based on this value and that treatment with normal saline is appropriate. Patient was given 1 L of normal saline as well as for morphine did have improvement of her pain. Therefore at this time patient will be discharged home with muscle relaxers and pain medication and can follow-up with her family doctor on Saturday as previously scheduled for repeat evaluation. This plan of care was discussed with patient and her and they are agreeable to it Lab Data Attestation: I reviewed the patient's lab results. Labs: Laboratory Results - last 24 hr 03/20/21 03/20/21 16:00 16:00 WBC 6.6 RBC 4.30 Hgb 13.7 Hct 38.7 MCV 90.0 MCH 31.9 MCHC 35.4 RDW Std Deviation 39.6 RDW Coeff of Oliver 12.0 Plt Count 339 MPV 9.0 Immature Gran % (Auto) 5.000 H Neut % (Auto) 70.2 H Lymph % (Auto) 15.1 L [place] % (Auto) 8.3 Eos % (Auto) 0.9 Baso % (Auto) 0.5 Absolute Neuts (auto) 4.7 Absolute Lymphs (auto) 1.00 Nucleated RBC % 0 Sodium 124 L Potassium 3.6 Chloride 88 L Carbon Dioxide 25.0 Anion Gap 11 BUN 8 Creatinine 0.53 L Estim Creat Clear Calc 39.63 Est GFR (MDRD) Af Amer 145 Est GFR (MDRD) Non-Af 120 BUN/Creatinine Ratio 15.0 Glucose 103 Calcium 8.6 Magnesium 2.1 Total Creatine Kinase 66 Discharge Plan Triage Chief Complaint: Other, Pain/Inj ED Provider: Teto Sesay Dx/Rx/DC Orders Clinical Impression: Myalgia, Hyponatremia, COVID-19 akilah stevenson Instructions: ED Hyponatremia, ED Myalgias Prescriptions: New oxycodone-acetaminophen [Endocet] 5-325 mg tablet 1 tab PO Q6H PRN (Reason: pain) 3 Days Qty: 12 RF: 0 methocarbamol 500 mg tablet 500 mg PO Q6H PRN (Reason: Muscle pain/spasm) Qty: 40 RF: 0 No Action albuterol sulfate 90 mcg/actuation HFA aerosol inhaler 1 inh inhalation Q4H PRN (Reason: shortness of breath or wheezing) 14 Days Qty: 8.5 RF: 0 dexamethasone 2 mg tablet 2 mg PO DAILY RF: 0 Primary Care Provider: León Adam Referrals: León Adam MD [Primary Care Provider] - Disposition Disposition: Home, Self Care
== END 2021-03-20 17:35 | disposition home or self-care (01) ==
PROVIDERS: Emergency Provider Emergency Medicine; PCP Family Medicine
DX: M79.10 Myalgia, unspecified site (principal); E87.1 Hypo-osmolality and hyponatremia; U09.9 Post COVID-19 condition, unspecified; Z79.52 Long term (current) use of systemic steroids; Z87.891 Personal history of nicotine dependence
CPT/HCPCS: 80048; 82550; 83735; 85025; 96361; 96374; 96375; 99283; J7030; A4216; J2405